=== PATIENT | male | born 1965 | race Caucasian/White ===

== ENCOUNTER 2016-08-06 15:29 | Emergency (ER) | payer BC, OTHER ==
[~2016-08-06] VITALS: Ht 175.3 cm; Wt 77.0 kg
[~2016-08-06 15:29] MED LIST: CLOP75 PO; DICY1TAB26 PO; OMEP20CA5 PO; Z.0.NO CURRENT MEDS; [UNRECOGNIZED DRUG - CODE] TOPICAL
[2016-08-06 15:42] VITALS: BP 146/105; PULSE 90; RESP 16; TEMP 98.4; O2SAT 97
[2016-08-06] MEDS ORDERED: NAPR220T95 PO (15:53)
--- NOTE | 2016-08-06 16:23 | PD ---
HPI Chief Complaint: Musculoskeletal Complaint Time Seen by Provider: 16:23 Travel History International Travel<30 days: No Contact w/Intl Traveler<30days: No Traveled to known affect area: No History of Present Illness HPI 49-year-old male with history of right femoral fracture and DVT ON PLAVIX presents to the ED for evaluation of less than 24-hour history of right-sided knee pain. Patient can identify no acute trauma but states that he did go bike riding for the first time in many years a few days ago. He endorses warmth of the area and pain in the superior aspect of the patella. 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 Endorses working on his knees frequently. He denies numbness, tingling, weakness, limitations to range of motion or loss of strength of the extremity. He took Aleve which he states helped improve his symptoms. PFSH Past Medical History Hx Anticoagulant Therapy: Yes (PLAVIX) Cardiovascular Problems: Yes (right arm occlusion) Diminished Hearing: No Hypertension: Yes Tetanus Vaccination: Unknown Influenza Vaccination: No Past Surgical History Tonsillectomy: Yes Other Surgery: Yes (left ingunial hernia repair ) Social History Alcohol Use: Yes (OCC) Tobacco Use: No (1 ppd) Substance Use: No (unspecified hx; denies recent use (08/06/16)) Allergies-Medications (Allergen,Severity, Reaction): Coded Allergies: No Known Allergies (Verified , 08/06/16) Reported Meds & Prescriptions Reported Meds & Active Scripts Active Clindamycin (Clindamycin HCl) 150 Mg Cap 450 Mg PO Q6H 14 Days Naprosyn (Naproxen) 500 Mg Tab 500 Mg PO BID Reported Aleve (Naproxen Sodium) 220 Mg Tab 440 Mg PO BID PRN Review of Systems Except as stated in HPI: all other systems reviewed are Neg Physical Exam Narrative GENERAL: Well-nourished, well-developed nontoxic appearing white male in no acute distress. SKIN: Focused skin assessment warm/dry. Psoriatic plaque of bilateral knees. HEAD: Normocephalic. EYES: No scleral icterus. No injection or drainage. NECK: Supple, trachea midline. No JVD or lymphadenopathy. CARDIOVASCULAR: Regular rate and rhythm without murmurs, gallops, or rubs. RESPIRATORY: Breath sounds equal bilaterally. No accessory muscle use. GASTROINTESTINAL: Abdomen soft, non-tender, nondistended. MUSCULOSKELETAL: No cyanosis, or edema. Focused right lower extremity exam: The anterior aspect of the knee is warm, erythematous and fluctuant. Tender to palpation at the superior aspect of the patella. No joint line tenderness. No limitations to range of motion. No popliteal tenderness. Patient maintains full, active, painless range of motion of the entire extremity. Neurovascularly intact. BACK: Nontender without obvious deformity. No CVA tenderness. Data Data Last Documented VS Vital Signs Date Time Temp Pulse Resp B/P Pulse Ox O2 Delivery O2 Flow Rate FiO2 08/06/16 15:42 98.4 90 16 146/105 97 Orders Knee, Complete (4vws) (08/06/16 16:05) Ice/Cold Pack (08/06/16 16:05) ^ Jareth Bandage (08/06/16 17:46) MDM Medical Decision Making Medical Screen Exam Complete: Yes Emergency Medical Condition: Yes Differential Diagnosis Knee effusion versus abscess versus bursitis versus septic bursitis versus septic joint versus osteoarthritis versus other Narrative Course 49-year-old male with history of right femoral fracture and DVT ON PLAVIX presents to the ED for evaluation of less than 24-hour history of right-sided knee pain. Patient can identify no acute trauma but states that he did go bike riding for the first time in many years a few days ago. He endorses warmth of the area and pain in the superior aspect of the patella. 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 Endorses working on his knees frequently. He denies numbness, tingling, weakness, limitations to range of motion or loss of strength of the extremity. Vitals reviewed. Physical exam reveals a nontoxic- appearing white male in no acute distress. There are psoriatic plaques of bilateral knees. The right knee is warm, erythematous, fluctuant, tender to palpation at the superior aspect of the patella. Patient maintains full, active , painless ROM of the knee and entire extremity. Neurovascularly intact. Extremities reveal prepatellar soft tissue swelling and an incidental foreign body. I discussed the case with Dr. Tafoya who recommended that we contact orthopedist placed a call to the on-call orthopedist which was returned by Dr. Dio Burch's PA. He states that they can follow up with the patient in the office Thursday at the earliest, otherwise the patient will need to be admitted to the hospital for drainage of the bursitis. Discussed this plan with Dr. Tafoya. We feel that the patient is safe for discharge with by mouth antibiotics and strict return cautions. I discussed the plan with the patient who is agreeable. He was prescribed for 450mg clindamycin 4 times a day 14 days. He is instructed to begin taking antibiotics today. He is also provided a short course of anti-inflammatories. He is instructed to follow-up with Dr. Wharton's office tomorrow for an appointment, return for worsening of symptoms. He indicated understanding of the instructions. He is stable and discharged home. Diagnosis Primary Impression: Bursitis, prepatellar, right Referrals: Edu Wharton MD Patient Instructions: General Instructions, Knee Bursitis (ED) Additional Instructions: Rest, ice, elevate the extremity. Apply ice no longer than 10-15 minutes per hour a few times a day. 800 mg ibuprofen up to 3 times a day to reduce pain and inflammation. Take all antibiotics as prescribed, even his symptoms resolved. Return to normal, gentle activity as tolerated. No running, jumping activities for the next few weeks. Follow up with Dr. Wharton's office tomorrow. Return to the ED for worsening of symptoms. Return to the ED for any urgent or emergent medical condition. Med/Other Pt SpecificInfo: Prescription(s) given Scripts Clindamycin 150 Mg [id number] Mg PO Q6H 14 Days Ref 0 Prov:Antwan Tafoya MD 08/06/16 Naproxen (Naprosyn)500 Mg [id number] Mg PO BID #20 TAB Ref 0 Prov:Antwan Tafoya MD 08/06/16 Disposition: 01 DISCHARGE HOME Condition: Stable Evon Burgos Aug 06, 2016 16:23
--- NOTE | 2016-08-06 16:31 | RADHPO ---
EXAM DATE/TIME: 08/06/2016 16:17 [facility] COMPARISON: No previous studies available for comparison. INDICATIONS : Right knee pain. MEDICAL HISTORY : None. SURGICAL HISTORY : None. ENCOUNTER: Initial ACUITY: 1 day PAIN SCORE: 7/10 LOCATION: Right knee FINDINGS: 4 views of the right knee demonstrate no fracture or dislocation. Mineralization is within normal [place] its. No joint effusion is present. There is prepatellar soft tissue swelling. 2 adjacent linear densi ties overlie the anterior lateral soft tissues and are likely metallic in density. CONCLUSION: 1. Marked prepatellar soft tissue swelling. No fracture is identified. 2. Nonspecific potentially metallic densities in the anterior lateral knee soft tissues. The largest measures 3 mm. Jerardo Nguyen MD on August 06, 2016 at 16:28 Board Certified Radiologist. This report was verified electronically.
[2016-08-06] MEDS ORDERED: NAPR500 PO (17:29)
[2016-08-06] MEDS ORDERED: CLIN1CAP5 PO ×2 (17:29→17:45)
== END 2016-08-06 18:05 | disposition home or self-care (01) ==
LOC: PHEFT 15:29
DX: M70.41 Prepatellar bursitis, right knee (principal); Y93.9 Activity, unspecified; Z86.718 Personal history of other venous thrombosis and embolism; Z79.01 Long term (current) use of anticoagulants; I10 Essential (primary) hypertension
CPT/HCPCS: 73564; 99283

== ENCOUNTER 2016-12-24 14:36 | Emergency (ER) | payer BC ==
[~2016-12-24] VITALS: Ht 177.8 cm; Wt 76.0 kg
[~2016-12-24 14:36] MED LIST changes: +CLIN1CAP5 PO; -CLOP75 PO; -DICY1TAB26 PO; +NAPR220T95 PO; +NAPR500 PO; -OMEP20CA5 PO; -Z.0.NO CURRENT MEDS; -[UNRECOGNIZED DRUG - CODE] TOPICAL
[2016-12-24 14:40] VITALS: BP 198/105; PULSE 72; RESP 16; TEMP 98.2; O2SAT 99
[2016-12-24 15:09] LABS: BLOOD, URINE LARGE (NEG); GLUCOSE,URINE NEG (NEG); KETONE, URINE NEG (NEG); NITRITE,URINE NEG (NEG)
--- NOTE | 2016-12-24 15:24 | PD ---
HPI . Left flank pain Chief Complaint: Flank/Kidney Pain Time Seen by Provider: 15:07 Travel History International Travel<30 days: No Contact w/Intl Traveler<30days: No Traveled to known affect area: No History of Present Illness HPI Patient presents with the chief complaint of left flank pain. He reports a prior history of kidney stones and states that this pain feels similar. States that his urine has been dark. He reports some nausea but no vomiting. He denies fever. The pain comes and goes. It is rated 10/10. He states that he can put his finger on a spot in his back and that it exacerbates his pain. He states that he will feel a pop followed by increased pain. Patient states that he injured his back at work about a month ago. He started having back pain at that time. He attributed the back pain to a muscular injury. He states that his back pain today is acutely different and feels more like a kidney stone. In addition, the patient reports a mass in his left low back. He states that the mass comes and goes. He states that it can be sore. It is not the source of his pain today. PFSH Past Medical History Hx Anticoagulant Therapy: Yes (PLAVIX) Cardiovascular Problems: Yes (right arm occlusion) Diminished Hearing: No Hypertension: Yes Kidney Stones: Yes Past Surgical History Tonsillectomy: Yes Other Surgery: Yes (left ingunial hernia repair ) Social History Alcohol Use: Yes (2/WEEK) Tobacco Use: No (1 ppd) Substance Use: No (unspecified hx; denies recent use (08/06/16)) Allergies-Medications (Allergen,Severity, Reaction): Coded Allergies: No Known Allergies (Verified , 12/24/16) Reported Meds & Prescriptions Reported Meds & Active Scripts Active Keflex (Cephalexin) 500 Mg Capsule 500 Mg PO Q8H 10 Days Percocet (Oxycodone-Acetaminophen) 5-325 mg Tab 1 Tab PO Q4H PRN Flomax (Tamsulosin HCl) 0.4 Mg Cap 0.4 Mg PO HS Review of Systems Except as stated in HPI: all other systems reviewed are Neg General / Constitutional: No: Fever, Chills Gastrointestinal: Positive: Nausea, No: Vomiting, Diarrhea Genitourinary: Positive: Flank Pain, No: Urgency, Frequency, Dysuria Skin: Positive Other Physical Exam Narrative GENERAL: Awake and alert and in no acute distress. SKIN: Warm and dry. He does have a palpable soft tissue mass in the left lower back at about the waistline. It feels like a hot dog. It is freely mobile. It is soft. The overlying skin is not red or hot. HEAD: Atraumatic. Normocephalic. EYES: Pupils equal and round. Extraocular movements are intact. ENT: No nasal bleeding or discharge. Mucous membranes pink and moist. NECK: Trachea midline. Neck is supple. CARDIOVASCULAR: Regular rate and rhythm. RESPIRATORY: No accessory muscle use. GASTROINTESTINAL: Abdomen soft, non-tender, nondistended. MUSCULOSKELETAL: No obvious deformities. No edema. NEUROLOGICAL: Awake and alert. No obvious cranial nerve deficits. Motor grossly within normal limits. Normal speech. PSYCHIATRIC: Appropriate mood and affect; insight and judgment normal. Data Data Last Documented VS Vital Signs Date Time Temp Pulse Resp B/P (MAP) Pulse Ox O2 Delivery O2 Flow Rate FiO2 12/24/16 14:40 98.2 72 16 198/105 (136) 99 Orders Orders Urinalysis - C+S If Indicated (12/24/16 14:51) Basic Metabolic Panel (Bmp) (12/24/16 15:16) Complete Blood Count With Diff (12/24/16 15:16) Iv Access Insert/Monitor (12/24/16 15:16) Ketorolac Inj (Toradol Inj) (12/24/16 15:30) Ondansetron Inj (Zofran Inj) (12/24/16 15:30) Sodium Chloride 0.9% Flush (Ns Flush) (12/24/16 15:30) Hydromorphone Pf Inj (Dilaudid Pf Inj) (12/24/16 15:30) Ct Abd/Pel W/O Iv Contrast (12/24/16 15:26) Urine Culture (12/24/16 14:48) Ceftriaxone Inj (Rocephin Inj) (12/24/16 16:30) Hydromorphone Pf Inj (Dilaudid Pf Inj) (12/24/16 16:45) Radiology Film Requests (12/24/16 ) Labs Laboratory Tests Test 12/24/16 14:48 12/24/16 15:33 Urine Color YELLOW Urine Turbidity CLOUDY Urine pH 6.0 Urine Specific [place] 1.020 Urine Protein NEG mg/dL Urine Glucose (UA) NEG mg/dL Urine Ketones NEG mg/dL Urine Occult Blood LARGE Urine Nitrite NEG Urine Bilirubin NEG Urine Leukocyte Esterase NEG Urine RBC INNUM /hpf Urine WBC 20-24 /hpf Urine Squamous Epithelial Cells 0-5 /hpf Microscopic Urinalysis Comment CULTURE INDICATED White Blood Count 15.7 TH/MM3 Red Blood Count 4.67 MIL/MM3 Hemoglobin 14.2 GM/DL Hematocrit 42.8 % Mean Corpuscular Volume 91.6 FL Mean Corpuscular Hemoglobin 30.5 PG Mean Corpuscular Hemoglobin Concent 33.3 % Red Cell Distribution Width 13.5 % Platelet Count 299 TH/MM3 Mean Platelet Volume 7.7 FL Neutrophils (%) (Auto) 83.6 % Lymphocytes (%) (Auto) 7.8 % Monocytes (%) (Auto) 6.2 % Eosinophils (%) (Auto) 1.0 % Basophils (%) (Auto) 1.4 % Neutrophils # (Auto) 13.1 TH/MM3 Lymphocytes # (Auto) 1.2 TH/MM3 Monocytes # (Auto) 1.0 TH/MM3 Eosinophils # (Auto) 0.2 TH/MM3 Basophils # (Auto) 0.2 TH/MM3 CBC Comment AUTO DIFF Differential Comment AUTO DIFF CONFIRMED Blood Urea Nitrogen 16 MG/DL Creatinine 1.40 MG/DL Random Glucose 82 MG/DL Calcium Level 8.7 MG/DL Sodium Level 141 MEQ/L Potassium Level 3.6 MEQ/L Chloride Level 108 MEQ/L Carbon Dioxide Level 26.4 MEQ/L Anion Gap 7 MEQ/L Estimat Glomerular Filtration Rate 53 ML/MIN [facility] Medical Decision Making Medical Screen Exam Complete: Yes Emergency Medical Condition: Yes Differential Diagnosis Differential diagnosis of flank pain includes but is not limited to kidney stone , pyelonephritis, musculoskeletal pain, PE Narrative Course This patient presents with left flank pain. He will be evaluated for possible kidney stone. I have ordered his CT with contrast so been able to further differentiate the soft tissue mass. CBC & BMP Diagram 12/24/16 15:33 Calcium Level 8.7 UA>>large blood, TNTC RBCs, 20-24 WBCs. Last Impressions Abdomen/Pelvis CT 12/24/16 1526 Signed Impressions: Service Date/Time: Saturday, December 24, 2016 15:52 - CONCLUSION: 2 ureteral stones on the left with marked perinephric stranding. Aleksander Dallas MD FACR The results of the scan have been discussed with the patient. I have expressed to he and his the importance of urgent follow-up with urology. Patient was given IV Rocephin. He will be discharged on Keflex for the UTI as well as on Flomax and Percocet for the kidney stone. Diagnosis Primary Impression: Renal colic on left side Additional Impressions: Hydronephrosis due to obstruction of ureter Pyelonephritis Patient Instructions: General Instructions, Hydronephrosis (DC), Kidney Stones (DC), Urinary Tract Infection in Children (GEN) Med/Other Pt SpecificInfo: Prescription(s) given Scripts Cephalexin (Keflex) 500 Mg Capsule 500 MG PO Q8H for Infection for 10 Days, CAP 0 Refills Prov: Kathleen Waldron MD 12/24/16 Oxycodone-Acetaminophen (Percocet) 5-325 mg Tab 1 TAB PO Q4H Y for PAIN, #12 TAB 0 Refills Prov: Kathleen Waldron MD 12/24/16 Tamsulosin (Flomax) 0.4 Mg Cap 0.4 MG PO HS for Manage Prostate Problems, #30 CAP 0 Refills Prov: Kathleen Waldron MD 12/24/16 Disposition: 01 DISCHARGE HOME Condition: Stable Kathleen Waldron MD Dec 24, 2016 15:24
[2016-12-24 15:27] LABS: URINE COLOR YELLOW (YELLW/STRAW)
[2016-12-24 15:28] LABS: COMMENT (UR) CULTURE INDICATED; CULTURE IF INDICATED CULTURE INDICATED; RBC, URINE INNUM /hpf (0-3); SQUAMOUS EPITHELIAL CELL URINE 0-5 /hpf (0-5)
[2016-12-24] MEDS ORDERED: ONDANSETRON HCL 4 MG/2 ML VIAL IVP ONE (15:30)
[2016-12-24] MEDS ORDERED: SODIUM CHLORIDE 0.9% FLUSH 10 ML FLUSH IVF PRN (15:30)
[2016-12-24] MEDS ORDERED: KETOROLAC TROMETHAMINE 30 MG/ML (IVP) VIAL IVP ONE (15:30)
[2016-12-24] MEDS ORDERED: HYDROmorphone HCL PF 1 MG/ML VIAL IVS ONE (15:30)
[2016-12-24 15:43] LABS: AUTOMATED NEUTROPHIL # 13.1 TH/MM3 (1.8-7.7); BASOPHIL # 0.2 TH/MM3 (0-0.2); BASOPHIL % 1.4 % (0.0-2.0); EOSINOPHIL # 0.2 TH/MM3 (0-0.4); HEMATOCRIT 42.8 % (39.0-51.0); LYMPH % 7.8 % (9.0-44.0); LYMPHOCYTE # 1.2 TH/MM3 (1.0-4.8); MEAN CELL VOLUME 91.6 FL (80.0-100.0); MEAN CORPUSCULAR HEMOGLOBIN 30.5 PG (27.0-34.0); MEAN CORPUSCULAR HGB CONC 33.3 % (32.0-36.0); MONO % 6.2 % (0.0-8.0); NEUT % 83.6 % (16.0-70.0); PLATELET COUNT 299 TH/MM3 (150-450); RED BLOOD COUNT 4.67 MIL/MM3 (4.50-5.90); RED CELL DISTRIBUTION WIDTH 13.5 % (11.6-17.2); WHITE BLOOD COUNT 15.7 TH/MM3 (4.0-11.0)
[2016-12-24 15:49] LABS: POTASSIUM 3.6 MEQ/L (3.5-5.1)
[2016-12-24 15:51] LABS: HEMO FLAGS AUTO DIFF
[2016-12-24 15:52] LABS: BICARBONATE 26.4 MEQ/L (21.0-32.0)
--- NOTE | 2016-12-24 16:19 | RADRPT ---
EXAM DATE/TIME: 12/24/2016 15:52 [facility] COMPARISON: No previous studies available for comparison. INDICATIONS : Left flank pain. ORAL CONTRAST: No oral contrast ingested. RADIATION DOSE: 12.21 CTDIvol (mGy) MEDICAL HISTORY : Hypertension. Renal calculi. SURGICAL HISTORY : Inguinal hernia repair. ENCOUNTER: Initial ACUITY: 1 day PAIN SCALE: 7/10 LOCATION: Left flank TECHNIQUE: Low-dose scanning was obtained to exclude renal stones. FINDINGS: . LIVER: The portion of the liver visualized is free of focal defects. SPLEEN: Portion visualized is unremarkable. PANCREAS: Within normal limits. ADRENAL GLANDS: Within normal limits. RIGHT KIDNEY: Normal in size and shape. There is no mass, stone, or hydronephrosis. LEFT KIDNEY: Marked perinephric stranding with 4 mm proximal ureteral stone and 6 mm distal ureteral stone BOWEL/MESENTERY: The stomach, small bowel, and colon demonstrate no acute abnormality. There is no free intraperitone al air or fluid. RETROPERITONEUM: There is no lymphadenopathy. PELVIC CONTENTS: Prominent prostate is evident. ABDOMINAL WALL: Within normal limits. INGUINAL: There is no lymphadenopathy or hernia. MUSCULOSKELETAL: Within normal limits for patient age. CONCLUSION: 2 ureteral stones on the left with marked perinephric stranding. lAeksander Dallas MD FACR on December 24, 2016 at 16:07 Board Certified Radiologist. This report was verified electronically.
[2016-12-24] MEDS ORDERED: cefTRIAXone INJ 1,000 MG in SODIUM CHLORIDE 0.9% INJ 100 ML IV ONE (16:30)
[2016-12-24] MEDS ORDERED: TAMS5CAP PO (16:44)
[2016-12-24] MEDS ORDERED: PERC5TAB12 PO (16:44)
[2016-12-24] MEDS ORDERED: CEPH-460 PO (16:44)
[2016-12-24] MEDS ORDERED: HYDROmorphone HCL PF 1 MG/ML VIAL IV PUSH ONE (16:45)
[2016-12-24 16:50] VITALS: BP 175/90; PULSE 82; RESP 16; O2SAT 98
[2016-12-24 17:06] LABS: SCAN/DIFF AUTO DIFF CONFIRMED
[2016-12-24 18:35] VITALS: BP 162/88
== END 2016-12-24 18:41 | disposition home or self-care (01) ==
LOC: PHED 14:36
DX: N12 Tubulo-interstitial nephritis, not specified as acute or chronic (principal); I10 Essential (primary) hypertension; Z87.442 Personal history of urinary calculi; Z79.899 Other long term (current) drug therapy
CPT/HCPCS: 74176; 80048; 81001; 85025; 87086; 96365; 96366; 96375; 96376; 99285; J0696; J1170; J1885; J2405

== ENCOUNTER 2017-08-02 18:22 | Inpatient (IN) | payer BC ==
[2017-08-02] VITALS (7 sets, daily range): BP systolic 132–133; BP diastolic 78–90; PULSE 60–103; RESP 21; TEMP 98–98.3; O2SAT 97–100
[~2017-08-02] VITALS: Ht 177.8 cm; Wt 79.5 kg
[~2017-08-02 18:22] MED LIST changes: +CEPH-460 PO; -CLIN1CAP5 PO; +IOHEXOL 350 MG/ML 100 ML BTL (for Cath Lab) OTHER ONE; -NAPR220T95 PO; -NAPR500 PO; +PERC5TAB12 PO; +TAMS5CAP PO
[2017-08-02] MEDS ORDERED: SODIUM CHLOR 0.9% 1000 ML INJ 1,000 ML IV ONE (18:29)
[2017-08-02] MEDS ORDERED: NITROGLYCERIN 0.4 MG SL 25 TABS/BTL SL STA (18:29)
[2017-08-02] MEDS ORDERED: HEPARIN SODIUM - IV 10,000 UNITS/10 ML VIAL IV PUSH STA (18:29)
[2017-08-02] MEDS ORDERED: ASPIRIN 81 MG CHEW TAB PO STA (18:29)
[2017-08-02] MEDS ORDERED: SODIUM CHLORIDE 0.9% FLUSH 10 ML FLUSH IVF PRN (18:30)
[2017-08-02] MEDS ORDERED: NITROGLYCERIN-D5W 50 MG/250 ML 250 ML IV PRN (18:30)
--- NOTE | 2017-08-02 18:42 | PD ---
HPI Chief Complaint: STEMI Alert Time Seen by Provider: 18:29 Travel History International Travel<30 days: No Contact w/Intl Traveler<30days: No Traveled to known affect area: No History of Present Illness HPI Is a 52-year-old man who presents to the emergency department complaining of chest pain. Brought by EMS as a STEMI alert. Patient's been having intermittent chest pain for the past week and a half or so. Describes the pain as a cramping type feeling in the chest. Today he got the feeling much more severe these had in the past, and called EMS. Upon EMS arrival they found him to have inferior ST elevations with reciprocal lateral depressions. They gave him nitroglycerin, and 324 of aspirin. He had improvement of his symptoms and is now 3 out of 10 severity of chest pain. Patient states he had a stress test before. He is also had arterial insufficiency problems in the right hand, they contemplated bypass but it appeared to improve. He still has symptoms at times. History Past Medical History Narrative Medical Tobacco use Hypertension Social History Alcohol Use: Yes (2/WEEK) Tobacco Use: No (1 ppd) Allergies-Medications (Allergen,Severity, Reaction): Coded Allergies: No Known Allergies (Verified , 12/24/16) Reported Meds & Prescriptions Reported Meds & Active Scripts Active Keflex (Cephalexin) 500 Mg Capsule 500 Mg PO Q8H 10 Days Percocet (Oxycodone-Acetaminophen) 5-325 mg Tab 1 Tab PO Q4H PRN Flomax (Tamsulosin HCl) 0.4 Mg Cap 0.4 Mg PO HS Review of Systems Except as stated in HPI: all other systems reviewed are Neg Physical Exam Narrative GENERAL: 52-year-old man, appears uncomfortable, little bit diaphoretic. SKIN: Focused skin assessment warm/dry. HEAD: Atraumatic. Normocephalic. EYES: Pupils equal and round. No scleral icterus. No injection or drainage. ENT: No nasal bleeding or discharge. Mucous membranes pink and moist. NECK: Trachea midline. No JVD. CARDIOVASCULAR: Regular rate and rhythm. No murmur appreciated. RESPIRATORY: No accessory muscle use. Clear to auscultation. Breath sounds equal bilaterally. GASTROINTESTINAL: Abdomen soft, non-tender, nondistended. Hepatic and splenic margins not palpable. MUSCULOSKELETAL: No obvious deformities. No clubbing. No cyanosis. No edema. NEUROLOGICAL: Awake and alert. No obvious cranial nerve deficits. Motor grossly within normal limits. Normal speech. PSYCHIATRIC: Anxious. Data Data Last Documented VS Vital Signs Date Time Temp Pulse Resp B/P (MAP) Pulse Ox O2 Delivery O2 Flow Rate FiO2 08/02/17 18:34 98 Nasal Cannula 2.00 08/02/17 18:24 98.3 78 21 133/90 (104) Orders Orders Troponin I (08/02/17:) Ckmb (Isoenzyme) Profile (08/02/17 18) Complete Blood Count With Diff (08/02/17:) I-Stat Profile (08/02/17) I-Stat Creatinine (08/02/17) Calcium (08/02/17) Magnesium (Mg) (08/02/17) Prothrombin Time / Inr (Pt) (08/02/17) Act Partial Throm Time (Ptt) (08/02/17:) B-Type Natriuretic Peptide (08/02/17) Chest, Single Ap (08/02/17 18:) Electrocardiogram (08/02/17 18:) Oxygen Administration (08/02/17:) Iv Access Insert/Monitor (08/02/17) Oximetry (08/02/17:) Sodium Chlor 0.9% 1000 Ml Inj (Ns 1000 M (08/02/17 18:) Sodium Chloride 0.9% Flush (Ns Flush) (08/02/17 18:30) Aspirin Chew (Aspirin Chew) (08/02/17 18:) Nitroglycerin Sl (Nitrostat Sl) (08/02/17 18:29) Nitroglycerin-D5w 50 Mg/250 Ml (Nitrogly (08/02/17 18:30) Heparin Inj (Heparin Inj) (08/02/17 18:) MDM Medical Decision Making Medical Screen Exam Complete: Yes Emergency Medical Condition: Yes Interpretation(s) My review of EMS EKG: Sinus rhythm, in the 60s, inferior ST elevations of lateral depression suggestive of acute CO. Our EKG here shows marked inferior depressions with significant T-wave inversions, dynamic from his EMS EKG, associated with some lateral ST elevations it could suggest right sided infarct. Reviewed i-STAT. Differential Diagnosis ACS, STEMI alert, pericarditis, ventricular aneurysm, other Narrative Course Medical decision making Is a 52-year-old man presents to the emergency department with chest pain suggestive of ischemic heart disease with EKG suggestive of acute ST elevation CO. Discussed with Dr. medellin based on EMS EKG. Patient was taken emergently to the [facility]. Critical Care Narrative Aggregate critical care time was 30 minutes. Time to perform other separately billable procedures was not included in the critical care time. My time did not include minutes spent treating any other patients simultaneously or on activities that did not directly contribute to the patient's treatment. The services I provided to this patient were to treat and/or prevent clinically significant deterioration that could result in: , disability, unrecognized CO, permanent heart failure, other. I provided critical care services requiring my management, as noted below: Chart data review, documentation time, medication orders and management, vital sign assessments/reviewing monitor data, ordering and reviewing lab tests, ordering and interpreting/reviewing x-rays and diagnostic studies, care of the patient and discussion of the patient with the admitting physicians. Diagnosis Primary Impression: STEMI (ST elevation myocardial infarction) Admitting Information Admitting Physician Requests: Diaz Gomez MD Aug 02, 2017 18:42
--- NOTE | 2017-08-02 18:45 | RADRPT ---
EXAM DATE/TIME: 08/02/2017 18:29 [facility] COMPARISON: No previous studies available for comparison. INDICATIONS : Stemi Alert MEDICAL HISTORY : Hypertension. SURGICAL HISTORY : None. ENCOUNTER: Initial ACUITY: 1 day PAIN SCORE: 4/10 LOCATION: chest FINDINGS: A single view of the chest demonstrates the lungs to be symmetrically aerated without evidence of mas s, infiltrate or effusion. The cardiomediastinal contours are unremarkable. Osseous structures are intact. CONCLUSION: No evidence of acute cardiopulmonary disease. Normal heart size. Jerardo Correa MD on August 02, 2017 at 18:42 Board Certified Radiologist. This report was verified electronically.
[2017-08-02 18:46] LABS: HEMATOCRIT 40.6 % (39.0-51.0); HEMOGLOBIN 13.7 GM/DL (13.0-17.0); LYMPH % 12.3 % (9.0-44.0); MEAN CELL VOLUME 92.8 FL (80.0-100.0); MEAN CORPUSCULAR HEMOGLOBIN 31.4 PG (27.0-34.0); MEAN CORPUSCULAR HGB CONC 33.8 % (32.0-36.0); MEAN PLATELET VOLUME 7.6 FL (7.0-11.0); NEUT % 79.3 % (16.0-70.0); PLATELET COUNT 331 TH/MM3 (150-450); RED BLOOD COUNT 4.37 MIL/MM3 (4.50-5.90); RED CELL DISTRIBUTION WIDTH 14.2 % (11.6-17.2); WHITE BLOOD COUNT 15.5 TH/MM3 (4.0-11.0)
[2017-08-02 18:47] LABS: AUTOMATED NEUTROPHIL # 12.3 TH/MM3 (1.8-7.7); BASOPHIL # 0.1 TH/MM3 (0-0.2); BASOPHIL % 0.9 % (0.0-2.0); EOSINOPHIL # 0.1 TH/MM3 (0-0.4); EOSINOPHIL % 0.9 % (0.0-4.0); LYMPHOCYTE # 1.9 TH/MM3 (1.0-4.8); MONO % 6.6 % (0.0-8.0)
[2017-08-02 18:55] LABS: INTERNATIONAL NORMALIZED RATIO 1.1 RATIO; PROTHROMBIN TIME - PATIENT 10.8 SEC (9.8-11.6)
[2017-08-02] MEDS ORDERED: MIDAZOLAM HCL 2 MG/2 ML VIAL ONE (18:57)
[2017-08-02] MEDS ORDERED: HEPARIN-NS/PF FLUSH BAG 2,000 ML IV FLUSH ONE (18:57)
[2017-08-02 19:01] LABS: CALCIUM 8.3 MG/DL (8.5-10.1)
[2017-08-02 19:13] LABS: TROPONIN I 0.62 NG/ML (0.02-0.05)
[2017-08-02] MEDS ORDERED: BIVALIRUDIN 250 MG VIAL ONE (19:20)
--- NOTE | 2017-08-02 19:26 | MB ---
cc: Diaz Jackson MD DATE: 08/02/2017 REASON FOR CONSULTATION: Cardiac catheterization. INDICATION: ST elevation [place]. HISTORY OF PRESENT ILLNESS: This is a 52-year-old gentleman without significant past medical history for heart disease, who presents now with acute onset of substernal chest pain. He was found to have inferior ST elevation with reciprocal lateral depressions by EMS, was given nitroglycerin with some minor relief, but still has residual symptoms and electrocardiographic changes. ST elevation [place] protocol was initiated. PAST MEDICAL HISTORY: Tobacco abuse, hypertension and BPH. ALLERGIES: NO KNOWN DRUG ALLERGIES. MEDICATIONS: Percocet, Flomax. REVIEW OF SYSTEMS: A 12-point review of system was performed and negative unless otherwise noted in history of present illness. PHYSICAL EXAMINATION: VITAL SIGNS: Temperature 98, pulse 64, blood pressure 143/83 mmHg. GENERAL: Alert and oriented x 3, in no acute distress. HEENT: Shows pupils reactive to light and accommodation. Extraocular movements are intact. NECK: No elevation of jugular venous distention. No thyromegaly. No lymphadenopathy. No carotid bruits. LUNGS: Clear to auscultation bilaterally. CARDIOVASCULAR: Regular rate and rhythm without murmurs, rubs or gallops. ABDOMEN: Nontender, nondistended. Good bowel sounds. No hepatosplenomegaly. EXTREMITIES: No clubbing, cyanosis or edema. Good peripheral pulses. NEUROLOGIC: Cranial nerves intact. Motor, sensory grossly intact. LABORATORY DATA: WBC 15.5, hemoglobin 13.7, platelet count 331. INR is 1.1. Sodium 141, potassium 3.5, BUN 15, creatinine is 1.2. Electrocardiogram, inferior ST elevation. ASSESSMENT: 1. ST elevation myocardial infarction. 2. Hypertension. PLAN: The patient will be brought emergently to the cardiac catheterization lab. Risks, benefits, alternatives were discussed with the patient. He is agreeable to proceed. We will attempt for percutaneous revascularization. Diaz Jackson MD VÍCTOR/SB , 07:11 PM , 07:24 PM
[2017-08-02] MEDS ORDERED: ONDANSETRON HCL 4 MG/2 ML VIAL ONE (19:31)
[2017-08-02] MEDS ORDERED: ATROPINE SULFATE 1 MG/10 ML SYRINGE ONE ×2 (19:33→19:37)
[2017-08-02] MEDS ORDERED: TICAGRELOR 90 MG TAB PO ONE ×2 (19:37→19:45)
[2017-08-02] MEDS ORDERED: NITROGLYCERIN 400 MCG/SPRAY 4.9 GM BOTTLE SL ONE (19:42)
[2017-08-02] MEDS ORDERED: SODIUM CHLOR 0.9% 1000 ML INJ 1,000 ML IV SCH (19:43)
[2017-08-02] MEDS ORDERED: BIVALIRUDIN INJ 250 MG in SODIUM CHLORIDE 0.9% INJ 50 ML IV SCH (19:43)
[2017-08-02] MEDS ORDERED: BACITRACIN OINT 0.9 GM PKT TOP ONE (19:45)
[2017-08-02] MEDS ORDERED: oxyCODONE/ACETAMINOPHEN 5 MG/325 MG TAB PO PRN (19:45)
[2017-08-02] MEDS ORDERED: TEMAZEPAM 15 MG CAP PO PRN (19:45)
[2017-08-02] MEDS ORDERED: LIDOCAINE 2% JELLY 30 ML TUBE TOP PRN (19:45)
[2017-08-02] MEDS ORDERED: MISC INFORMATION XX ONE (19:45)
[2017-08-02] MEDS ORDERED: ONDANSETRON HCL 4 MG/2 ML VIAL IVP PRN (19:45)
[2017-08-02] MEDS ORDERED: oxyCODONE/ACETAMINOPHEN 10 MG/325 MG TAB PO PRN (19:45)
--- NOTE | 2017-08-02 20:02 | CATHPROC ---
Return Path HIS Report Study Information Study Number Admission Scheduled Start Study Start [id number] Aug 02 2017 6:46PM 08/02/2017 Aug 02 2017 6:57PM [place] [facility] Cardiac Catheterization Admit Source Facility Department Emergency department [facility] - [employer] Physician and Clinical Staff Initial Diaz Best Ortho TechBria Zarate,RN Ortho Tech Shiv Valderrama RN Other cathlab, cathlab Recorder Lisy Quintana,STAFFING COORDINATOR TECH2 Scrub Svetlana Costa,RT(R) Procedures Performed Procedure Location (Site) Vessel Name Coronary Angiograms LCA Left Coronary Coronary Angiograms RCA Right Coronary Drug Eluting Inflatio RCA Prox Right Coronary PTCA RCA Prox Right Coronary Wire insertion Fem Art (right) Femoral Art Equipment Time Event Producer Description Size Mfg Part Number Used/Scraped TRANSDUCER, TRUWAVE [id number] 19:20 PORTER MARES * Used W/STOCKCOCK *[id number] *[id number] *[id number] *[id number] *[id number] *[id number] 19:40 DAIG/ST. NINA MEDICAL ANGIOSEAL, FR6 VIP FR 6 Used *[id number] 19:20 [employer] IND[employer]RIES PACK, CCL CUSTOM * Used *[id number] 19:20 [employer] PACER PEN, SKIN DUAL W/ RULER * Used *[id number] 19:23 MEDTRONIC BALLOON, 2.5 X 15MM EUPHORA 15MM Used *[id number] BALLOON, 2.75 X 20MM NC [id number] 19:37 MEDTRONIC 20MM Used EUPHORA *[id number] 19:28 MEDTRONIC CATHETER, EXPORT ASPIRATON Used *[id number] 19:34 MEDTRONIC STENT, 2.5 22MM CESAR 2.5 22MM [id number] 19:27 [employer] MEDICAL 30 LIZA INDEFLATOR Used *[id number] 19:20 [employer] MEDICAL WIRE, 3MMJ .035 180CM 180CM Used *[id number] 19:20 NAMIC MANIFOLD, 4 PORT * Used *[id number] 19:20 NYCOMED OMNIPAQUE, 350 MG, 150ML 150ML [id number] Used [id number] 19:20 FOLEY [employer] BLANKET,WARM AIR CCL * Used *[id number] 19:20 TERUMO MEDICAL SHEATH, FR5 TERUMO (10CM) FR 5 Used *[id number] WIRE, RUNTHROUGH NS FLOPPY 19:21 TERUMO MEDICAL 180CM Used .014 180CM *[id number] Equipment Model, Serial, Lot Number and Expiration Data Description Model Number Serial Number Lot Number Expiration Date ANGIOSEAL, FR6 VIP [id number] 03-26-2018 CATHETER, EXPORT ASPIRATON [id number] 02-18-2019 STENT, 2.5 22MM CESAR [id number] 02-10-2019 History: Allergies Allergy Reaction No Known Allergies History: Risk Factors Family History of Hypertension Dyslipidemia Previous [place] Previous Heart Failure Premature CAD Yes No No No No Prior Valve Prior PCI Prior CABG Surgery No No No Cerebrovascular Peripheral Artery Chronic Lung On Dialysis Diabetes Disease Disease Disease No No No No No History: Symptoms/Diagnosis Selection Items Chest pain History: Stress Tests Stress or Imaging Studies Performed No History: Other Disease Selection Items HTN History: Other Current Smoker Method Packs a Day Years Used Pack Years Yes Cigarettes 1 40 40 Labs Hgb (g/dl) Hct (%) RBC (MIL/MM3) WBC (l/cumm) Platelets (thousands) 11.60-17.00 35.00-51.00 4.00-5.90 4.00-11.00 150.00-450.00 13.7 40.6 4.3 15.5 331 Glucose (mg/dl) BUN (mg/dl) Creatinine (mg/dl) BUN:Creatinine (1:x) 74.00-106.00 7.00-18.00 0.50-1.30 10.00-20.00 109 15 1.2 12.5 Na (meq/l) K (meq/l) Cl (meq/l) 136.00-145.00 3.50-5.10 98.00-107.00 141 3.5 106 Medication Medication Total Dose (Bolus/Oral) Medication Total Dosage/Unit 1% XYLOCAINE 20 mL ANGIOMAX BOLUS 11 mL ATROPINE 1 mg BRILINTA 180 mg FENTANYL 50 mcg NITROGLYCERIN S/L 0.4 mg OXYGEN 2 l/min VERSED 1 mg ZOFRAN 4 mg Medications (Bolus/Oral) Medication Time Given Dosage/Unit Administered By Reason VERSED 08/02/2017 7:16:59 PM 1 mg Shiv Valderrama 1 mg VERSED given in lab by Shiv Valderrama RN in Right Antecubital via Peripheral IV. Ordered by Diaz Adorno. OXYGEN 08/02/2017 7:16:59 PM 2 l/min Diaz Jackson Patient arrived on 2 l/min OXYGEN given by Diaz Jackson via Nasal. Ordered by Diaz Jackson. FENTANYL 08/02/2017 7:17:00 PM 50 mcg Shiv Valderrama 50 mcg FENTANYL given in lab by Shiv Valderrama RN in Right Antecubital via Peripheral IV. Ordered by Diaz Jackson. 1% XYLOCAINE 08/02/2017 7:19:01 PM 20 mL Diaz Jackson 20 mL 1% XYLOCAINE given in lab by Diaz Jackson in Right Groin via Subcutaneous. Ordered by Diaz Jackson. ANGIOMAX BOLUS 08/02/2017 7:24:27 PM 11 mL Shiv Valderrama 11 mL ANGIOMAX BOLUS given in lab by Shiv Valderrama RN in Right Antecubital via Peripheral IV. Ordere d by Diaz Jackson. ATROPINE 08/02/2017 7:31:22 PM 0.5 mg Bhargavi Mcgregornifer 0.5 mg ATROPINE given in lab by Bria Mcgregor RN in Right Antecubital via Peripheral IV. Ordered Diaz Anders. ATROPINE 08/02/2017 7:32:44 PM 0.5 mg Bhargavi Mcgregornifer 0.5 mg ATROPINE given in lab by Bria Mcgregor, PATRICIA in Right Antecubital via Peripheral IV. Ordered Diaz Anders. ZOFRAN 08/02/2017 7:33:02 PM 4 mg Meche Bria 4 mg ZOFRAN given in lab by Bria Mcgregor, PATRICIA in Right Antecubital via Peripheral IV. Ordered by Diaz Claudio. NITROGLYCERIN S/L 08/02/2017 7:42:48 PM 0.4 mg Meche, Bria 0.4 mg NITROGLYCERIN S/L given in lab by Bria Mcgregor, PATRICIA via Sublingual. Ordered by Melissa Jackson. BRILINTA 08/02/2017 7:50:08 PM 180 mg Bria Mcgregor 180 mg BRILINTA given in lab by Bria Mcgregor, PATRICIA via Oral. Ordered by Diaz Jackson. Medication (Drip) Medication Time Given Dosage/Unit Concentration/Unit Diluent (ml) Solution ANGIOMAX DRIP 08/02/2017 7:26:56 PM 1.75 mg/kg/hr 250 mg 50 NaCl .9 1.75 mg/kg/hr ANGIOMAX DRIP given in lab by Shiv Valderrama RN in Left Antecubital via Peripheral IV. Pump/Drip Flow = 26.25 ml/hr using NaCl .9 with a concentration of 250 mg in 50 ml. Ordered by Diaz Jackson. IV Solutions 08/02/2017 7:18:34 PM 50 mL (IV) 500 NaCl .9 IV Solutions given in lab by Shiv Valderrama RN in Right Antecubital via Peripheral IV. Pump/Drip Flow using NaCl .9. Ordered by Diaz Jackson. Initial Case Assessment Cardiovascular HR NIBP 63 169/101 Circulatory - Right Pulses Dorsalis Pedis Femoral 3 3 Scale (0,1,2,3,4,d) Circulatory - Left Pulses Dorsalis Pedis Femoral 3 3 Scale (0,1,2,3,4,d) Neurological State Oriented to time-place- Alert Moves all extremities person Respiration - General Respiration Rate SpO2 (%) O2 (lpm) (B/min) 15 100 2 Final Case Assessment Cardiovascular HR NIBP 117 126/84 Edema Present Skin color Skin None Normal Warm Dry Circulatory - Right Pulses Dorsalis Pedis Femoral 3 3 Scale (0,1,2,3,4,d) Circulatory - Left Pulses Dorsalis Pedis Femoral 3 3 Scale (0,1,2,3,4,d) Neurological State Oriented to time-place- Alert Moves all extremities person Respiration - General Respiration Rate SpO2 (%) (B/min) 15 100 Chronological Log Time Study Chronological Log 19:01:06 Emergency Room notified that [employer] is ready. PATRICIA LAYTON SPOKE WITH Deepika MORTENSEN 19:14:10 Patient arrived via Bed. 19:14:20 Patient Name, D.O.B, / Armband Verified By R.N. Vitals capture started with the following parameters, Patient=Adult, Interval=5 min, Initial Pr aijshu=221 mmHg, 19:15:31 Deflation Rate=5 mmHg, Cuff placed on Left Arm 19:16:46 HR=63 bpm, BXVV=949/101 mmhg, FmO2=085.0 %, Resp=15 B/min, Pain=4, Carrie=10, Gilmore=2 19:16:59 1 mg VERSED given in lab by Shiv Valderrama RN in Right Antecubital via Peripheral IV. Order ed by Daiz Jackson. 19:16:59 Patient arrived on 2 l/min OXYGEN given by Diaz Jackson via Nasal. Ordered by Cheko Jackson. 19:17:00 50 mcg FENTANYL given in lab by Shiv Valderrama RN in Right Antecubital via Peripheral IV. O rdered by Diaz Jackson. 19:17:33 Patient has been NPO for More than 6Hrs. 19:17:38 NO Skin Breakdown- 19:18:33 A # 20 IV was noted in the Antecubital (left). Grade = 0 IV Solutions given in lab by Shiv Valderrama RN in Right Antecubital via Peripheral IV. Pump/Dri p Flow using NaCl .9. 19:18:34 Ordered by Diaz Jackson. 19:18:34 History and physical on the chart or being dictated. Assessment: Initial Case, HR=63 BPM, SMVR=307/101 mmhg Right Pulses: Melchor Ped=3, Femoral=3 19:18:35 Left Pulses: Melchor Ped=3, Femoral=3 Neurological: State=Alert, Ox3, MORRIS Respiration: Resp=15 B/min, OvU9=927 %, O2=2 lpm 19:18:48 A # 20 IV was noted in the Antecubital (left). Grade = 0 19:18:53 Right groin prepped with 2% chlorhexidine, and draped after a 3 min. waiting time. Time Out. Correct patient, correct procedure, correct physician, power injector not loaded with contrast with surgical 19:18:58 team present. Time Out Concurred by MD and individual staff in procedure. 19:19:01 Case Start 19:19:01 20 mL 1% XYLOCAINE given in lab by Diaz Jackson in Right Groin via Subcutaneous. Ordered by Diaz Jackson. 19:19:39 Access site was Right Femoral Artery. 19:19:54 A # 20 IV was noted in the Antecubital (right). Grade = 0 19:20:23 A WIRE, 3MMJ .035 180CM 180CM was inserted via Fem Art (right). 19::27 A SHEATH, FR5 TERUMO (10CM) FR 5 was advanced into the Fem Art (right) using the Modified S eldinger technique. A JR 4.0 INFINITI CATHETER FR 6 was advanced over a wire. OMNIPAQUE, 350 MG, 150ML 150ML was us ed for 19:20:46 injections. 19:21:14 HR=72 bpm, MBQY=529/99 mmhg, ZpK5=310.0 %, Resp=10 B/min, Pain=4, Carrie=10, Gilmore=2 19:22:13 The RCA was injected and visualized at various angles. OMNIPAQUE, 350 MG, 150ML 150ML used . After removing the current catheter a JL 4.0 INFINITI CATHETER FR 6 was advanced over a WIRE, 3 MMJ .035 180CM 19:22:47 180CM. 19:23:40 The LCA was injected and visualized at various angles. OMNIPAQUE, 350 MG, 150ML 150ML used . 11 mL ANGIOMAX BOLUS given in lab by Shiv Valderrama, RN in Right Antecubital via Peripheral IV. Ordered by Manuel, 19:24:27 Diaz. After removing the current catheter a JR 4.0 GUIDE CATHETER FR 6 was advanced over a WIRE, 3MMJ .035 180CM 19:24:32 180CM. 19:25:20 Pressure channel 1 zeroed. Recorded Pressure: Ao, HR=77, Condition=Condition 1 19:25:31 (Aorta) Ao 145/93/116 19:25:32 Reference ECG taken 19:26:04 A WIRE, RUNTHROUGH NS FLOPPY .014 180CM 180CM was inserted via Fem Art (right). 19:26:11 HR=69 bpm, TNLI=820/97 mmhg, YaT5=882.0 %, Resp=8 B/min, Pain=4, Carrie=10, Gilmore=2 A BALLOON, 2.5 X 15MM EUPHORA 15MM was inserted over WIRE, RUNTHROUGH NS FLOPPY .014 180CM 180C M via 19:26:50 the RCA Prox. A BALLOON, 2.5 X 15MM EUPHORA 15MM over a WIRE, RUNTHROUGH NS FLOPPY .014 180CM 180CM in the RC A 19:26:51 Prox was inflated using a 30 LIZA INDEFLATOR at 8 liza for 10 sec. 1.75 mg/kg/hr ANGIOMAX DRIP given in lab by Shiv Valderrama RN in Left Antecubital via Periphera l IV. Pump/Drip Flow 19::56 = 26.25 ml/hr using NaCl .9 with a concentration of 250 mg in 50 ml. Ordered by Diaz Jackson. 19::57 Balloon Removed. 19:30:11 Aspiration catheter inserted 19:30:14 Aspiration in progress 0.5 mg ATROPINE given in lab by Bria Mcgregor, PATRICIA in Right Antecubital via Peripheral IV. Ord ered by Manuel :31:22 Diaz. 19::52 Catheter was removed 19:32:00 HR=52 bpm, NIBP=90/54 mmhg, SpO2=97 %, Resp=11 B/min, Pain=4, Carrie=10, Gilmore=2 A BALLOON, 2.5 X 15MM EUPHORA 15MM was inserted over WIRE, RUNTHROUGH NS FLOPPY .014 180CM 180C M via 19:32:00 the RCA Prox. A BALLOON, 2.5 X 15MM EUPHORA 15MM over a WIRE, RUNTHROUGH NS FLOPPY .014 180CM 180CM in the RC A 19:32:04 Prox was inflated using a 30 LIZA INDEFLATOR at 8 liza for 10 sec. 19:32:10 Balloon Removed. 0.5 mg ATROPINE given in lab by Bria Mcgregor, PATRICIA in Right Antecubital via Peripheral IV. Ord ered by Manuel :32:44 Diaz. 19:33:02 4 mg ZOFRAN given in lab by Bria Mcgregor, PATRICIA in Right Antecubital via Peripheral IV. Ord ered by Diaz Jackson. A STENT, 2.5 22MM CESAR 2.5 22MM was advanced through a JR 4.0 GUIDE CATHETER FR 6 over a WIRE, 19:33:39 RUNTHROUGH NS FLOPPY .014 180CM 180CM. A STENT, 2.5 22MM CESAR 2.5 22MM was deployed using a 30 LIZA INDEFLATOR at 18 atmospheres for 12 seconds in 19:34:14 the RCA Prox. 19:35:14 Delivery device removed 19:36:36 HR=89 bpm, HOAP=936/67 mmhg, VtG7=418.0 %, Resp=10 B/min A BALLOON, 2.75 X 20MM NC EUPHORA 20MM was inserted over WIRE, RUNTHROUGH NS FLOPPY .014 180CM 19:36:39 180CM via the RCA Prox. A BALLOON, 2.75 X 20MM NC EUPHORA 20MM over a WIRE, RUNTHROUGH NS FLOPPY .014 180CM 180CM in th e RCA 19:37:35 Prox was inflated using a 30 LIZA INDEFLATOR at 16 liza for 10 sec. 19:38:34 Balloon Removed. PCI QA completed: Pre-Rosendo - 0, Post Rosendo - 3, Type - ~TYPE~, Length - 20 mm, Morphology - Conc entric, Indications - 19:38:39 Lesion > 50/stem, Pre-Stenosis - 100% and Post Stenosis - 0%. 19:38:40 PCI QA obtained from Balance Wheel Hand Filer 19:39:26 An injection in the Fem Art (right) was made through the SHEATH, FR5 TERUMO (10CM) FR 5. 19:40:19 Catheter(s) removed without difficulty 19:40:32 ANGIOSEAL, FR6 VIP FR 6 placement in the Fem Art (right) 19:41:09 VP=438 bpm, JYHV=387/82 mmhg, Resp=11 B/min, Pain=4, Carrie=10, Gilmore=2 19:41:40 Case End 19:42:48 0.4 mg NITROGLYCERIN S/L given in lab by Bria Mcgregor, RN via Sublingual. Ordered by Diaz Schneider. 19:46:12 NX=449 bpm, TJOF=230/84 mmhg, SpO2=80.0 %, Resp=14 B/min, Pain=4, Carrie=10, Gilmore=2 19:50:08 180 mg BRILINTA given in lab by Bria Mcgregor, RN via Oral. Ordered by Diaz Jackson. 19:50:18 Vitals capture stopped. Assessment: Final Case, AH=984 BPM, ZTAP=876/84 mmhg, Edema=None, Color=Normal, Skin = Warm, D ry Right Pulses: Melchor Ped=3, Femoral=3 19:50:31 Left Pulses: Melchor Ped=3, Femoral=3 Neurological: State=Alert, Ox3, MORRIS Respiration: Resp=15 B/min, BtS6=829 % 19:51:43 Sterile dressing applied to site 19:51:45 No case complications noted. 19:51:46 Cine recording checked. 19:51:50 Bedside Report will be given. 19:57:34 Patient moved to stretcher End Study - Contrast Media Used In Study Contrast Total Opened (mL) Total Used (mL) Total Wasted (mL) Hypaque 76 70 70 0 End Study - Maximum Contrast Load Max Contrast Load (mL) 312.5 End Study - Radiation Exposure Fluoro Time (minutes) 4.3 End Study - Patient Disposition Complications Transferred To Interventional Outcome No Telemetry Bed successful
--- NOTE | 2017-08-02 20:09 | MA ---
cc: Diaz Jackson MD DATE: 08/02/2017 INDICATION: ST-elevation myocardial infarction. PROCEDURES PERFORMED: 1. Fluoroscopy with interpretation. 2. Coronary angiography. 3. Percutaneous intervention with drug-eluting stent to the proximal right coronary artery. 4. Thrombectomy of the right coronary artery. METHOD: Risks, benefits and alternatives were discussed with the patient. The patient understood and consented to the procedure. The patient was brought into the catheterization lab, placed on the catheterization table. The right groin was prepped and draped in sterile fashion. The right groin was anesthetized with 2% lidocaine. The right common femoral artery was cannulated and a 6 Haitian, 11 cm sheath was placed without difficulty. CORONARY ANGIOGRAPHY: 1. Left main coronary is angiographically normal. 2. Left anterior descending coronary artery has mild irregularities. Diagonal branch has mild luminal irregularities. 3. Left circumflex gives rise to an obtuse marginal branch with minor luminal irregularities. 4. Right coronary artery is a dominant vessel giving rise to a posterior descending branch. Right coronary proximally is 100% occluded. Heavy thrombotic burden. PERCUTANEOUS INTERVENTION: Right coronary as selectively engaged with a 6-Haitian JR4 guide catheter. A 0.014, 180 cm Terumo run through wire was navigated down the distal posterior descending branch. A 2.5 x 15 mm RX 2.4 balloon was advanced down to the proximal segment, deployed in 2 sequential inflations. Repeat angiography showed SUNNY 2 flow, but still severe residual stenosis with still heavy thrombotic burden. An Baisden catheter was then advanced down the proximal right coronary and thrombectomy performed. Repeat angiography still showed residual stenosis. A 2.5 x 22 mm RX Resolute drug-eluting stent was advanced down to the proximal right coronary, deployed and postdilated with a 2.75 x 20 mm RX noncompliant balloon. Repeat angiography showed no residual stenosis, SUNNY 3 flow. Angiomax was administered to throughout entire procedure to maintain appropriate anticoagulation. CONCLUSIONS: 1. Acutely thrombotically occluded right coronary artery. 2. Successful thrombectomy and percutaneous intervention with drug-eluting stent to the right coronary artery. PLAN: The patient being initiated on aspirin, Brilinta, statin, beta liz. We will check a 2D echocardiogram. We will monitor for any post-procedural complications. Right common femoral artery was closed with a 6 Haitian Angio-Seal with good hemostasis. MD VÍCTOR Sanchez/STEFANIA , 07:49 PM , 08:08 PM
[2017-08-02] MEDS ORDERED: PILL SPLITTER OTHER PRN (20:15)
[2017-08-02] MEDS ORDERED: ATORVASTATIN 40 MG TAB PO SCH (21:00)
[2017-08-02] MEDS: METOPROLOL TARTRATE 25 MG TAB PO SCH (21:41)
[2017-08-03] VITALS (20 sets, daily range): BP systolic 136–156; BP diastolic 78–99; PULSE 57–77; RESP 18–19; TEMP 97.6–98.4; O2SAT 98–100
[2017-08-03 04:01] LABS: AUTOMATED NEUTROPHIL # 8.3 TH/MM3 (1.8-7.7); BASOPHIL # 0.1 TH/MM3 (0-0.2); BASOPHIL % 0.5 % (0.0-2.0); EOSINOPHIL # 0.1 TH/MM3 (0-0.4); HEMATOCRIT 38.6 % (39.0-51.0); LYMPHOCYTE # 1.3 TH/MM3 (1.0-4.8); MEAN CELL VOLUME 92.7 FL (80.0-100.0); MEAN CORPUSCULAR HEMOGLOBIN 31.1 PG (27.0-34.0); MEAN CORPUSCULAR HGB CONC 33.5 % (32.0-36.0); MEAN PLATELET VOLUME 7.6 FL (7.0-11.0); MONO % 10.3 % (0.0-8.0); MONOCYTE # 1.1 TH/MM3 (0-0.9); NEUT % 76.2 % (16.0-70.0); PLATELET COUNT 271 TH/MM3 (150-450); RED BLOOD COUNT 4.16 MIL/MM3 (4.50-5.90); RED CELL DISTRIBUTION WIDTH 13.8 % (11.6-17.2); WHITE BLOOD COUNT 10.8 TH/MM3 (4.0-11.0)
[2017-08-03 04:25] LABS: BICARBONATE 23.8 MEQ/L (21.0-32.0); CALCIUM 7.9 MG/DL (8.5-10.1); CREATININE 1.07 MG/DL (0.60-1.30)
[2017-08-03 04:38] LABS: CHOLESTEROL/ HDL RATIO 3.95 RATIO; HDL CHOLESTEROL 32.4 MG/DL (40.0-60.0)
--- NOTE | 2017-08-03 08:46 | PD.CARD.PN ---
Subjective Subjective Remarks no chest pain ambulating feeling well Objective Medications Current Medications Medications (Trade) Dose Ordered Sig/Tonia Route Start Time Stop Time Status Last Admin (NS Flush) 2 ml UNSCH PRN IVF 08/02/17 18:30 Nitroglycerin/ Dextrose 250 ml @ 3 mls/hr TITRATE PRN IV 08/02/17 18:30 08/02/17 19:02 (Percocet 5-325 Mg) 1 tab Q4H PRN PO 08/02/17 19:45 (Percocet 10-325 Mg) 1 tab Q4H PRN PO 08/02/17 19:45 (Restoril) 15 mg HS PRN PO 08/02/17 19:45 (Zofran Inj) 4 mg Q6H PRN IVP 08/02/17 19:45 (Aspirin Chew) 81 mg DAILY PO 08/03/17 09:00 (Brilinta) 90 mg BID PO 08/03/17 09:00 (Xylocaine 2% Jelly) 1 applic UNSCH X1 PRN TOP 08/02/17 19:45 08/03/17 19:44 (Lopressor) 12.5 mg BID PO 08/02/17 21:00 08/02/17 21:41 (Lipitor) 40 mg HS PO 08/02/17 21:00 08/02/17 21:41 (Pill Splitter) 1 ea UNSCH PRN OTHER 08/02/17 20:15 (Prinivil) 5 mg DAILY PO 08/03/17 09:00 UNV Vital Signs / I&O Vital Signs Date Time Temp Pulse Resp B/P (MAP) Pulse Ox O2 Delivery O2 Flow Rate FiO2 08/03/17 08:00 69 08/03/17 07:15 98.1 58 18 156/92 (113) 100 08/03/17 07:15 77 08/03/17 06:01 58 08/03/17 05:12 68 08/03/17 04:24 98.1 73 145/88 (107) 98 08/03/17 04:00 57 08/03/17 03:00 62 08/03/17 02:00 60 08/03/17 01:00 60 08/03/17 00:20 97.6 62 136/78 (97) 98 08/03/17 00:00 62 08/02/17 23:00 60 08/02/17 22:00 78 08/02/17 21:00 84 08/02/17 20:45 99 21 08/02/17 20:00 98.0 103 132/78 (96) 100 08/02/17 19:02 64 143/83 08/02/17 18:34 98 Nasal Cannula 2.00 08/02/17 18:34 21 97 Nasal Cannula 2.00 08/02/17 18:24 98.3 78 21 133/90 (104) 97 I/O 08/02/17 08/02/17 08/02/17 08/03/17 08/03/17 08/03/17 06:59 14:59 22:59 06:59 14:59 22:59 Intake Total 720 ml Output Total 1000 ml Balance -280 ml Intake Oral 720 ml Output Urine Total 1000 ml Physical Exam EYES: No scleral icterus. No injection or drainage. NECK: Supple, trachea midline. No JVD or lymphadenopathy. CARDIOVASCULAR: Regular rate and rhythm without murmurs, gallops, or rubs. RESPIRATORY: Breath sounds equal bilaterally. No accessory muscle use. GASTROINTESTINAL: Abdomen soft, non-tender, nondistended. MUSCULOSKELETAL: No cyanosis, or edema. BACK: Nontender without obvious deformity. No CVA tenderness. Laboratory Laboratory Tests Test 08/02/17 18:27 08/03/17 03:34 White Blood Count 15.5 TH/MM3 10.8 TH/MM3 Red Blood Count 4.37 MIL/MM3 4.16 MIL/MM3 Hemoglobin 13.7 GM/DL 13.0 GM/DL Bedside Hemoglobin 13.3 G/DL Hematocrit 40.6 % 38.6 % Bedside Hematocrit 39.0 % Mean Corpuscular Volume 92.8 FL 92.7 FL Mean Corpuscular Hemoglobin 31.4 PG 31.1 PG Mean Corpuscular Hemoglobin Concent 33.8 % 33.5 % Red Cell Distribution Width 14.2 % 13.8 % Platelet Count 331 TH/MM3 271 TH/MM3 Mean Platelet Volume 7.6 FL 7.6 FL Neutrophils (%) (Auto) 79.3 % 76.2 % Lymphocytes (%) (Auto) 12.3 % 12.0 % Monocytes (%) (Auto) 6.6 % 10.3 % Eosinophils (%) (Auto) 0.9 % 1.0 % Basophils (%) (Auto) 0.9 % 0.5 % Neutrophils # (Auto) 12.3 TH/MM3 8.3 TH/MM3 Lymphocytes # (Auto) 1.9 TH/MM3 1.3 TH/MM3 Monocytes # (Auto) 1.0 TH/MM3 1.1 TH/MM3 Eosinophils # (Auto) 0.1 TH/MM3 0.1 TH/MM3 Basophils # (Auto) 0.1 TH/MM3 0.1 TH/MM3 CBC Comment DIFF FINAL DIFF FINAL Differential Comment Prothrombin Time 10.8 SEC Prothromb Time International Ratio 1.1 RATIO Activated Partial Thromboplast Time 24.3 SEC Bedside Sodium 141 MMOL/L Bedside Potassium 3.5 MMOL/L Bedside Chloride 106 MMOL/L Bedside Blood Urea Nitrogen 15 MG/DL Bedside Creatinine 1.2 MG/DL Bedside Glucose 109 MG/DL Calcium Level 8.3 MG/DL 7.9 MG/DL Magnesium Level 2.0 MG/DL Total Creatine Kinase 301 U/L 1084 U/L Creatine Kinase MB 5.1 NG/ML 113.6 NG/ML Troponin I 0.62 NG/ML B-Type Natriuretic Peptide 29 PG/ML Blood Urea Nitrogen 14 MG/DL Creatinine 1.07 MG/DL Random Glucose 96 MG/DL Sodium Level 142 MEQ/L Potassium Level 3.6 MEQ/L Chloride Level 110 MEQ/L Carbon Dioxide Level 23.8 MEQ/L Anion Gap 8 MEQ/L Estimat Glomerular Filtration Rate 72 ML/MIN Creatine Kinase MB % 10.5 % Triglycerides Level 105 MG/DL Cholesterol Level 128 MG/DL LDL Cholesterol 75 MG/DL HDL Cholesterol 32.4 MG/DL Cholesterol/HDL Ratio 3.95 RATIO Imaging Last 24 hours Impressions Chest X-Ray 08/02/17 1829 Signed Impressions: Service Date/Time: Wednesday, August 02, 2017 18:29 - CONCLUSION: No evidence of acute cardiopulmonary disease. Normal heart size. Jerardo Correa MD Assessment and Plan Assessment and Plan STEMI - s/p PCI NATANAEL RCA doing well asa brillinta ACEI statin BB echo pending EKG this am if he does well later today and echo unremarkable, may consider DC late afternoon trop 0.6 Diaz Jackson MD Aug 03, 2017 08:46
[2017-08-03] MEDS ORDERED: BRIL90TA PO (08:49)
[2017-08-03] MEDS ORDERED: METO25TA3 PO (08:49)
[2017-08-03] MEDS ORDERED: LISI-519 PO (08:49)
[2017-08-03] MEDS ORDERED: ASPI81 PO (08:49)
[2017-08-03] MEDS ORDERED: ATOR40TA16 PO (08:49)
[2017-08-03] MEDS: METOPROLOL TARTRATE 25 MG TAB PO SCH (08:57)
[2017-08-03] MEDS ORDERED: ASPIRIN 81 MG CHEW TAB PO SCH (09:00)
[2017-08-03] MEDS ORDERED: TICAGRELOR 90 MG TAB PO SCH (09:00)
[2017-08-03] MEDS ORDERED: LISINOPRIL 5 MG TAB PO SCH (09:00)
--- NOTE | 2017-08-03 15:21 | EKG ---
Date Performed: 08/03/2017 Time Performed: 05:19:36 PTAGE: 52 years EKG: Sinus rhythm Possible inferior infarct - age undetermined Anterior T wave changes are nonspecific Abnormal ECG NO PREVIOUS TRACING DOCTOR: Delmy German Interpretating Date/Time 08/03/2017 15:14:02
--- NOTE | 2017-08-03 15:41 | EKG ---
Date Performed: 08/02/2017 Time Performed: 18:28:07 PTAGE: 52 years EKG: Sinus rhythm WITH MARKED SINUS ARRHYTHMIA LEFT VENTRICULAR HYPERTROPHY AND ST-T CHANGE ACUTE LATERAL MYOCARDIAL I NFARCTION WITH ST ELEVATION IN LEADS I AND AVL WITH INVERTED P WAVES IN THE INFERIOR LEADS II, III, A ND AVF ABNORMAL ECG NO PREVIOUS TRACING DOCTOR: Delmy German Interpretating Date/Time 08/03/2017 15:40:41
--- NOTE | 2017-08-03 15:43 | EKG ---
Date Performed: 08/03/2017 Time Performed: 09:07:50 PTAGE: 52 years EKG: CONSIDER ACUTE ST ELEVATION [place] Sinus bradycardia Inferior ST elevation, CONSIDER AC REENA INFARCT Septal ST-T changes are nonspecific Compared to previous tracing, there's now evidence fo r inferior Myocardial infarction, which is significantly different from the prior tracing Abnormal EC G PREVIOUS TRACING : 08/03/2017 05.19 DOCTOR: Delmy German Interpretating Date/Time 08/03/2017 15:41:28
--- NOTE | 2017-08-03 16:37 | ECHRPT ---
Indication: Chest pain CONCLUSIONS The left ventricular systolic function is low normal with an estimated ejection fraction in the rang e of 50- 55%. Mild inferior wall hypokinesis. Wall thickness is normal. Normal left ventricular size. Mild thickening of the mitral valve leaflets. Mild mitral valve regurgitation. There is trace tricuspid valve regurgitation. The estimated pulmonary arterial pressure is 22.5 mmHg. BP: 145 / 88 HR: 58 Rhythm: Sinus MEASUREMENTS (Male / Female) Normal Values Technical Quality:Fair 2D ECHO LV Diastolic Diameter PLAX 5.1 cm 4.2 - 5.9 / 3.9 - 5.3 cm LV Systolic Diameter PLAX 4.2 cm IVS Diastolic Thickness 0.9 cm 0.6 - 1.0 / 0.6 - 0.9 cm LVPW Diastolic Thickness 0.8 cm 0.6 - 1.0 / 0.6 - 0.9 cm LV Relative Wall Thickness 0.3 RV Internal Dim ED PLAX 3.3 cm LVOT Diameter 2.3 cm LA Systolic Diameter LX 4.0 cm 3.0 - 4.0 / 2.7 - 3.8 cm M-MODE Aortic Root Diameter MM 2.8 cm LA Systolic Diameter MM 4.0 cm LA Ao Ratio MM 1.4 AV Cusp Separation MM 2.0 cm DOPPLER AV Peak Velocity 124.0 cm/s AV Peak Gradient 6.2 mmHg LVOT Peak Velocity 82.5 cm/s LVOT Peak Gradient 2.7 mmHg AV Area Cont Eq pk 2.8 cm MV Area PHT 3.0 cm Mitral E Point Velocity 56.0 cm/s Mitral A Point Velocity 45.2 cm/s Mitral E to A Ratio 1.2 LV E' Lateral Velocity 7.1 cm/s Mitral E to LV E' Lateral Ratio 7.9 LV E' Septal Velocity 8.9 cm/s Mitral E to LV E' Septal Ratio 6.3 TR Peak Velocity 177.0 cm/s TR Peak Gradient 12.5 mmHg Right Atrial Pressure 10.0 mmHg Pulmonary Artery Systolic Pressu 22.5 mmHg Right Ventricular Systolic Press 22.5 mmHg FINDINGS LEFT VENTRICLE The left ventricular systolic function is low normal with an estimated ejection fraction in the rang e of 50- 55%. Mild inferior wall hypokinesis. Wall thickness is normal. Normal left ventricular size. RIGHT VENTRICLE Normal right ventricular size and systolic function. LEFT ATRIUM The left atrial size is normal. RIGHT ATRIUM The right atrial size is normal. ATRIAL SEPTUM Normal atrial septal thickness without atrial level shunting by limited color doppler interrogation. AORTA The aortic root and proximal ascending aorta are normal in size on limited imaging. MITRAL VALVE Mild thickening of the mitral valve leaflets. Mild mitral valve regurgitation. AORTIC VALVE Trileaflet aortic valve. No aortic valve stenosis or regurgitation. TRICUSPID VALVE Structurally normal tricuspid valve. There is trace tricuspid valve regurgitation. The estimated pulmonary arterial pressure is 22.5 mmHg. PULMONARY VALVE No pulmonary valve regurgitation or stenosis. VESSELS The inferior vena cava is normal in size. PERICARDIUM No pericardial effusion. Diaz Jackson MD, FACC (Electronically Signed) Final Date:03 August 2017 16:36
--- NOTE | 2017-08-03 17:39 | HHI.DS ---
Discharge Summary Admission Date Aug 02, 2017 at 18:46 Discharge Date: Aug 03, 2017 Admitting Diagnosis STEMI Procedures [facility] with PCI [place] RCA CBC/BMP: 08/03/17 0334 08/03/17 0334 Significant Findings Laboratory Tests Test 08/02/17 18:27 08/03/17 03:34 White Blood Count 15.5 TH/MM3 (4.0-11.0) Red Blood Count 4.37 MIL/MM3 (4.50-5.90) 4.16 MIL/MM3 (4.50-5.90) Neutrophils (%) (Auto) 79.3 % (16.0-70.0) 76.2 % (16.0-70.0) Neutrophils # (Auto) 12.3 TH/MM3 (1.8-7.7) 8.3 TH/MM3 (1.8-7.7) Monocytes # (Auto) 1.0 TH/MM3 (0-0.9) 1.1 TH/MM3 (0-0.9) Bedside Potassium 3.5 MMOL/L (3.6-5.0) Calcium Level 8.3 MG/DL (8.5-10.1) 7.9 MG/DL (8.5-10.1) Creatine Kinase MB 5.1 NG/ML (0.5-3.6) 113.6 NG/ML (0.5-3.6) Troponin I 0.62 NG/ML (0.02-0.05) Hematocrit 38.6 % (39.0-51.0) Monocytes (%) (Auto) 10.3 % (0.0-8.0) Chloride Level 110 MEQ/L (98-107) Estimat Glomerular Filtration Rate 72 ML/MIN (>89) Total Creatine Kinase 1084 U/L (39-308) Creatine Kinase MB % 10.5 % (0.0-4.0) HDL Cholesterol 32.4 MG/DL (40.0-60.0) Pt Condition on Discharge: Good Discharge Disposition: Discharge Home Discharge Instructions DIET: Follow Instructions for: Heart Healthy Diet Activities you can perform: Weight Bearing as Diaz Sheffield MD Aug 03, 2017 17:39
== END 2017-08-03 18:15 | disposition home or self-care (01) | DRG 247 ==
LOC: NEPE 18:22 → NEDA 18:46 → HCPC 19:58
PROVIDERS: ADMIT Internal Medicine; ATTEND Internal Medicine
PROC: 027034Z Dilation of Coronary Artery, One Artery with Drug-eluting Intraluminal Device, Percutaneous Approach (ICD-10-PCS; principal; 2017-08-02)
PROC: 02C03ZZ Extirpation of Matter from Coronary Artery, One Artery, Percutaneous Approach (ICD-10-PCS; 2017-08-02)
PROC: 4A023N7 Measurement of Cardiac Sampling and Pressure, Left Heart, Percutaneous Approach (ICD-10-PCS; 2017-08-02)
PROC: B2111ZZ Fluoroscopy of Multiple Coronary Arteries using Low Osmolar Contrast (ICD-10-PCS; 2017-08-02)
DX: I21.29 ST elevation (STEMI) myocardial infarction involving other sites (principal); I10 Essential (primary) hypertension; I25.10 Atherosclerotic heart disease of native coronary artery without angina pectoris; N40.0 Benign prostatic hyperplasia without lower urinary tract symptoms; Z87.891 Personal history of nicotine dependence
CPT/HCPCS: 71045; 80048; 80061; 82310; 82550; 82552; 83735; 83880; 84484; 85025; 85610; 85730; 92941; 93005; 93306; 93454; 96374; 99152; 99153; C1725; C1757; C1769; C1874; C1887; C1893; J0461; J0583; J1644; J2250; J2405; J3010; Q9967